=== PATIENT | female | born 1990 | race Caucasian/White ===

== ENCOUNTER 2018-12-15 20:08 | Emergency (ER) | payer BC ==
[2018-12-15] MEDS ORDERED: Ondansetron 4 MG/2 ML SDV IVPUSH ONE (20:37)
[2018-12-15] MEDS ORDERED: Sodium Chloride 0.9% 1,000 ML IV SCH (20:45)
--- NOTE | 2018-12-15 22:03 | EDM.PDOC ---
<Latrell Galo - Last Filed: 12/16/18 08:44> ED HPI GENERAL MEDICAL PROBLEM - General Chief Complaint: Abdominal Pain Stated Complaint: ABDOMINAL PAIN/FEVER/ACHES Time Seen by Provider: 12/15/18 20:17 - Related Data Allergies Allergy/AdvReac Type Severity Reaction Status Date / Time No Known Allergies Allergy Verified 12/15/18 20:22 Home Meds: Home Meds . [No Known Home Meds] 12/15/18 [History] Course - Vital Signs Last Recorded V/S: Last Vital Signs Temp 36.8 C 12/15/18 20:19 Pulse 97 12/15/18 20:19 Resp 16 12/15/18 20:19 BP 110/57 L 12/15/18 20:19 Pulse Ox 100 12/15/18 20:19 - Orders/Labs/Meds Labs: Laboratory Tests 12/15/18 12/15/18 12/15/18 Range/Units 20:50 20:50 20:50 WBC 7.39 (3.98-10.04) K/mm3 RBC 4.30 (3.98-5.22) M/mm3 Hgb 13.2 (11.2-15.7) gm/L Hct 37.8 (34.1-44.9) % MCV 87.9 (79.4-94.8) fl MCH 30.7 (25.6-32.2) pg MCHC 34.9 (32.2-35.5) g/dl RDW Std Deviation 38.8 (36.4-46.3) fL Plt Count 215 (182-369) K/mm3 MPV 10.8 (9.4-12.3) fl Neutrophils % (Manual) 68 H (40-60) % Band Neutrophils % 0 (0-10) % Lymphocytes % (Manual) 25 (20-40) % Atypical Lymphs % 0 % Monocytes % (Manual) 6 (2-10) % Eosinophils % (Manual) 0 L (0.7-5.8) % Basophils % (Manual) 1 (0.1-1.2) Platelet Estimate Adequate Plt Morphology Comment Normal RBC Morph Comment Normal Sodium 136 (136-145) mEq/L Potassium 3.2 L (3.5-5.1) mEq/L Chloride 103 (98-107) mEq/L Carbon Dioxide 25 (21-32) mEq/L Anion Gap 11.2 (5-15) BUN 7 (7-18) mg/dL Creatinine 0.9 (0.55-1.02) mg/dL Est Cr Clr Drug Dosing 81.80 mL/min Estimated GFR (MDRD) > 60 (>60) mL/min BUN/Creatinine Ratio 7.8 L (14-18) Glucose 111 H (74-106) mg/dL Calcium 8.9 (8.5-10.1) mg/dL Total Bilirubin 0.8 (0.2-1.0) mg/dL AST 24 (15-37) U/L ALT 36 (14-59) U/L Alkaline Phosphatase 96 (46-116) U/L C-Reactive Protein 11.3 H* (<1.0) mg/dL Total Protein 7.5 (6.4-8.2) g/dl Albumin 3.9 (3.4-5.0) g/dl Globulin 3.6 gm/dL Albumin/Globulin Ratio 1.1 (1-2) Urine Color (Yellow) Urine Appearance (Clear) Urine pH (5.0-8.0) Ur Specific Harvel (1.005-1.030) Urine Protein (Negative) Urine Glucose (UA) (Negative) Urine Ketones (Negative) Urine Occult Blood (Negative) Urine Nitrite (Negative) Urine Bilirubin (Negative) Urine Urobilinogen (0.2-1.0) Ur Leukocyte Esterase (Negative) Urine RBC (0-5) /hpf Urine WBC (0-5) /hpf Ur Epithelial Cells (0-5) /hpf Urine Bacteria (FEW) /hpf Urine Mucus (FEW) /hpf Urine HCG, Qual (NEGATIVE) 12/15/18 12/15/18 12/16/18 Range/Units 21:04 21:04 05:35 WBC 6.09 (3.98-10.04) K/mm3 RBC 4.18 (3.98-5.22) M/mm3 Hgb 12.8 (11.2-15.7) gm/L Hct 37.2 (34.1-44.9) % MCV 89.0 (79.4-94.8) fl MCH 30.6 (25.6-32.2) pg MCHC 34.4 (32.2-35.5) g/dl RDW Std Deviation 40.0 (36.4-46.3) fL Plt Count 208 (182-369) K/mm3 MPV 10.6 (9.4-12.3) fl Neutrophils % (Manual) 45 (40-60) % Band Neutrophils % 0 (0-10) % Lymphocytes % (Manual) 50 H (20-40) % Atypical Lymphs % 0 % Monocytes % (Manual) 1 L (2-10) % Eosinophils % (Manual) 3 (0.7-5.8) % Basophils % (Manual) 1 (0.1-1.2) Platelet Estimate Adequate Plt Morphology Comment Normal RBC Morph Comment Normal Sodium (136-145) mEq/L Potassium (3.5-5.1) mEq/L Chloride (98-107) mEq/L Carbon Dioxide (21-32) mEq/L Anion Gap (5-15) BUN (7-18) mg/dL Creatinine (0.55-1.02) mg/dL Est Cr Clr Drug Dosing mL/min Estimated GFR (MDRD) (>60) mL/min BUN/Creatinine Ratio (14-18) Glucose (74-106) mg/dL Calcium (8.5-10.1) mg/dL Total Bilirubin (0.2-1.0) mg/dL AST (15-37) U/L ALT (14-59) U/L Alkaline Phosphatase (46-116) U/L C-Reactive Protein (<1.0) mg/dL Total Protein (6.4-8.2) g/dl Albumin (3.4-5.0) g/dl Globulin gm/dL Albumin/Globulin Ratio (1-2) Urine Color Yellow (Yellow) Urine Appearance Clear (Clear) Urine pH 7.5 (5.0-8.0) Ur Specific Harvel 1.015 (1.005-1.030) Urine Protein Trace H (Negative) Urine Glucose (UA) Negative (Negative) Urine Ketones Negative (Negative) Urine Occult Blood Negative (Negative) Urine Nitrite Negative (Negative) Urine Bilirubin Negative (Negative) Urine Urobilinogen 1.0 (0.2-1.0) Ur Leukocyte Esterase Negative (Negative) Urine RBC 0-5 (0-5) /hpf Urine WBC 0-5 (0-5) /hpf Ur Epithelial Cells 0-5 (0-5) /hpf Urine Bacteria Not seen (FEW) /hpf Urine Mucus Not seen (FEW) /hpf Urine HCG, Qual Negative (NEGATIVE) 12/16/18 Range/Units 05:35 WBC (3.98-10.04) K/mm3 RBC (3.98-5.22) M/mm3 Hgb (11.2-15.7) gm/L Hct (34.1-44.9) % MCV (79.4-94.8) fl MCH (25.6-32.2) pg MCHC (32.2-35.5) g/dl RDW Std Deviation (36.4-46.3) fL Plt Count (182-369) K/mm3 MPV (9.4-12.3) fl Neutrophils % (Manual) (40-60) % Band Neutrophils % (0-10) % Lymphocytes % (Manual) (20-40) % Atypical Lymphs % % Monocytes % (Manual) (2-10) % Eosinophils % (Manual) (0.7-5.8) % Basophils % (Manual) (0.1-1.2) Platelet Estimate Plt Morphology Comment RBC Morph Comment Sodium (136-145) mEq/L Potassium (3.5-5.1) mEq/L Chloride (98-107) mEq/L Carbon Dioxide (21-32) mEq/L Anion Gap (5-15) BUN (7-18) mg/dL Creatinine (0.55-1.02) mg/dL Est Cr Clr Drug Dosing mL/min Estimated GFR (MDRD) (>60) mL/min BUN/Creatinine Ratio (14-18) Glucose (74-106) mg/dL Calcium (8.5-10.1) mg/dL Total Bilirubin (0.2-1.0) mg/dL AST (15-37) U/L ALT (14-59) U/L Alkaline Phosphatase (46-116) U/L C-Reactive Protein 8.8 H* (<1.0) mg/dL Total Protein (6.4-8.2) g/dl Albumin (3.4-5.0) g/dl Globulin gm/dL Albumin/Globulin Ratio (1-2) Urine Color (Yellow) Urine Appearance (Clear) Urine pH (5.0-8.0) Ur Specific Harvel (1.005-1.030) Urine Protein (Negative) Urine Glucose (UA) (Negative) Urine Ketones (Negative) Urine Occult Blood (Negative) Urine Nitrite (Negative) Urine Bilirubin (Negative) Urine Urobilinogen (0.2-1.0) Ur Leukocyte Esterase (Negative) Urine RBC (0-5) /hpf Urine WBC (0-5) /hpf Ur Epithelial Cells (0-5) /hpf Urine Bacteria (FEW) /hpf Urine Mucus (FEW) /hpf Urine HCG, Qual (NEGATIVE) Meds: Medications Discontinued Medications Generic Name Dose Route Start Last Admin Trade Name Freq PRN Reason Stop Dose Admin Hydromorphone HCl 0.5 mg 12/16/18 00:25 12/16/18 01:05 Dilaudid IVPUSH 12/16/18 00:26 0.5 mg ONETIME ONE Administration Sodium Chloride 1,000 mls @ 999 mls/hr 12/15/18 20:45 12/15/18 20:52 Normal Saline IV 999 mls/hr ASDIRECTED JORDI Administration Dextrose/Sodium Chloride 1,000 mls @ 125 mls/hr 12/16/18 00:30 Dextrose 5%-Normal Saline IV ASDIRECTED JORDI Potassium Chloride/Dextrose/Sod Cl 1,000 mls @ 125 mls/hr 12/16/18 00:30 01:04 D5 Ns With 40 Meq Kcl IV 125 mls/hr ASDIRECTED JORDI Administration Piperacillin Sod/Tazobactam 100 mls @ 25 mls/hr 12/16/18 00:30 12/16/18 08:58 Sod 4.5 gm/ Sodium Chloride IV Not Given Q8H JORDI Ketorolac Tromethamine 30 mg 12/15/18 22:36 12/15/18 22:43 Toradol IVPUSH 12/15/18 22:37 30 mg ONETIME ONE Administration Lactulose 20 gm 12/15/18 22:53 12/15/18 23:16 Cephulac PO 12/15/18 22:54 20 gm ONETIME ONE Administration Ondansetron HCl 4 mg 12/15/18 20:37 12/15/18 20:53 Zofran IVPUSH 12/15/18 20:38 4 mg ONETIME ONE Administration Ondansetron HCl 4 mg 12/16/18 00:24 12/16/18 01:04 Zofran IVPUSH 12/16/18 00:25 4 mg ONETIME ONE Administration - Re-Assessments/Exams Free Text/Narrative Re-Assessment/Exam: 12/16/18 08:32 Dr. Rodriguez is here to evaluate the patient. 12/16/18 08:44 Dr. Rodriguez is not convinced that the patient has appendicitis. He feels that she is more tender on the left side than the right. He offered to take the patient to the operating room, versus have the patient go home and return if her symptoms worsen. The patient chose the latter option. He recommends that we do not continue antibiotics, and he does not want her on pain medication. If the patient returns, it will be to take her to the operating room. He simply wants to be called - he doesn't want her to be re-worked up. Departure - Departure Time of Disposition: 08:46 Disposition: Home, Self-Care 01 Clinical Impression: Lower abdominal pain of unknown etiology, Mesenteric adenitis - Discharge Information Instructions: Abdominal Pain, Adult, [id number] Referrals: Olive Campbell MD [Primary Care Provider] - Forms: ED Department Discharge Additional Instructions: You were seen in the emergency room for lower abdominal pain. Workup in the ER included blood work and a CT scan of your abdomen and pelvis with oral and IV contrast. While the initial interpretation of your CT scan was that of constipation, a subsequent read was concerning for appendicitis. You were evaluated by the surgeon Dr. Rodriguez, who offered to take it to the operating room, however, you have preferred to return to the ER if your symptoms worsen. You may take [id number] Tylenol or ibuprofen as needed for discomfort. If your symptoms worsen, please return to the ER, with the anticipation that he will be taken to the operating room. <Lissett Lama - Last Filed: 12/17/18 10:53> ED HPI GENERAL MEDICAL PROBLEM - General Source of Information: Reports: Patient, RN Notes Reviewed History Limitations: Reports: No Limitations - History of Present Illness INITIAL COMMENTS - FREE TEXT/NARRATIVE: Patient is a 28 year old female who presents to the ED for the evaluation of abdominal pain/fever. She states that this pain started in the middle of her abdomen and then migrated to the right lower quadrant. She states that this started last night. She had some aches, flushing feelings, chills, slight headache and 4-5 episodes of diarrhea over the night, she states that there is pressure when she urinates and that it does not necessarily hurt to pee. She has been taking some ibuprofen for pain relief. She states she felt some mild nausea but no vomiting. She states that she is on her period at this point in time but she does not normally get cramps and when she does get cramps they go away with ibuprofen no problem. She states that she is and is monogamous to her . She believes him to be monogamous to her as well. She further denies any history of Crohn's or IBS. She has not had any abdominal surgeries so she still retains her appendix and gallbladder at this time. She further notes a history of ovarian cysts as well. She did go to the walk-in clinic, and they stated that they did not have a tech on to do an ultrasound or CT as it was given later in the day so they referred her to the ER instead for a workup. Abdominal Pain Score (Numeric/FACES): 6 Headache Pain Score (Numeric/FACES): 7 Past Medical History - Past Health History Medical/Surgical History: Denies Medical/Surgical History Social & Family History - Tobacco Use Smoking Status *Q: Never Smoker - Caffeine Use Caffeine Use: Reports: Coffee - Recreational Drug Use Recreational Drug Use: No ED ROS GENERAL - Review of Systems Review Of Systems: See Below Constitutional: Reports: Fever, Chills HEENT: Reports: No Symptoms Respiratory: Reports: No Symptoms Cardiovascular: Reports: No Symptoms Endocrine: Reports: No Symptoms GI/Abdominal: Reports: Abdominal Pain, Diarrhea, Nausea. Denies: Vomiting : Reports: Other (Pelvic pressure with urination) Musculoskeletal: Reports: No Symptoms Skin: Reports: No Symptoms Neurological: Reports: No Symptoms Psychiatric: Reports: No Symptoms Hematologic/Lymphatic: Reports: No Symptoms Immunologic: Reports: No Symptoms ED EXAM, GI/ABD - Physical Exam Exam: See Below Exam Limited By: No Limitations General Appearance: Alert, WD/WN, No Apparent Distress Eyes: Bilateral: Normal Appearance Ears: Normal External Exam Nose: Normal Inspection Throat/Mouth: Normal Inspection, Normal Lips, Normal Teeth, Normal Gums, Normal Oropharynx, Normal Voice, No Airway Compromise Head: Atraumatic, Normocephalic Neck: Normal Inspection, Supple, Non-Tender, Full Range of Motion Respiratory/Chest: No Respiratory Distress, Lungs Clear, Normal Breath Sounds, No Accessory Muscle Use, Chest Non-Tender Cardiovascular: Normal Peripheral Pulses, Regular Rate, Rhythm, No Murmur GI/Abdominal Exam: Normal Bowel Sounds, Soft, No Distention, No Mass, Tender ( generalized, but mostly tender over RLQ) Back Exam: Normal Inspection, Full Range of Motion Extremities: Normal Inspection, Normal Capillary Refill Neurological: Alert, Oriented, Normal Cognition, No Motor/Sensory Deficits Psychiatric: Normal Affect, Normal Mood Skin Exam: Warm, Dry, Intact, Normal Color, No Rash Course - Orders/Labs/Meds Labs: Laboratory Tests 12/15/18 12/15/18 12/15/18 Range/Units 20:50 20:50 20:50 WBC 7.39 (3.98-10.04) K/mm3 RBC 4.30 (3.98-5.22) M/mm3 Hgb 13.2 (11.2-15.7) gm/L Hct 37.8 (34.1-44.9) % MCV 87.9 (79.4-94.8) fl MCH 30.7 (25.6-32.2) pg MCHC 34.9 (32.2-35.5) g/dl RDW Std Deviation 38.8 (36.4-46.3) fL Plt Count 215 (182-369) K/mm3 MPV 10.8 (9.4-12.3) fl Neutrophils % (Manual) 68 H (40-60) % Band Neutrophils % 0 (0-10) % Lymphocytes % (Manual) 25 (20-40) % Atypical Lymphs % 0 % Monocytes % (Manual) 6 (2-10) % Eosinophils % (Manual) 0 L (0.7-5.8) % Basophils % (Manual) 1 (0.1-1.2) Platelet Estimate Adequate Plt Morphology Comment Normal RBC Morph Comment Normal Sodium 136 (136-145) mEq/L Potassium 3.2 L (3.5-5.1) mEq/L Chloride 103 (98-107) mEq/L Carbon Dioxide 25 (21-32) mEq/L Anion Gap 11.2 (5-15) BUN 7 (7-18) mg/dL Creatinine 0.9 (0.55-1.02) mg/dL Est Cr Clr Drug Dosing 81.80 mL/min Estimated GFR (MDRD) > 60 (>60) mL/min BUN/Creatinine Ratio 7.8 L (14-18) Glucose 111 H (74-106) mg/dL Calcium 8.9 (8.5-10.1) mg/dL Total Bilirubin 0.8 (0.2-1.0) mg/dL AST 24 (15-37) U/L ALT 36 (14-59) U/L Alkaline Phosphatase 96 (46-116) U/L C-Reactive Protein 11.3 H* (<1.0) mg/dL Total Protein 7.5 (6.4-8.2) g/dl Albumin 3.9 (3.4-5.0) g/dl Globulin 3.6 gm/dL Albumin/Globulin Ratio 1.1 (1-2) Urine Color (Yellow) Urine Appearance (Clear) Urine pH (5.0-8.0) Ur Specific Harvel (1.005-1.030) Urine Protein (Negative) Urine Glucose (UA) (Negative) Urine Ketones (Negative) Urine Occult Blood (Negative) Urine Nitrite (Negative) Urine Bilirubin (Negative) Urine Urobilinogen (0.2-1.0) Ur Leukocyte Esterase (Negative) Urine RBC (0-5) /hpf Urine WBC (0-5) /hpf Ur Epithelial Cells (0-5) /hpf Urine Bacteria (FEW) /hpf Urine Mucus (FEW) /hpf Urine HCG, Qual (NEGATIVE) 12/15/18 12/15/18 12/16/18 Range/Units 21:04 21:04 05:35 WBC 6.09 (3.98-10.04) K/mm3 RBC 4.18 (3.98-5.22) M/mm3 Hgb 12.8 (11.2-15.7) gm/L Hct 37.2 (34.1-44.9) % MCV 89.0 (79.4-94.8) fl MCH 30.6 (25.6-32.2) pg MCHC 34.4 (32.2-35.5) g/dl RDW Std Deviation 40.0 (36.4-46.3) fL Plt Count 208 (182-369) K/mm3 MPV 10.6 (9.4-12.3) fl Neutrophils % (Manual) 45 (40-60) % Band Neutrophils % 0 (0-10) % Lymphocytes % (Manual) 50 H (20-40) % Atypical Lymphs % 0 % Monocytes % (Manual) 1 L (2-10) % Eosinophils % (Manual) 3 (0.7-5.8) % Basophils % (Manual) 1 (0.1-1.2) Platelet Estimate Adequate Plt Morphology Comment Normal RBC Morph Comment Normal Sodium (136-145) mEq/L Potassium (3.5-5.1) mEq/L Chloride (98-107) mEq/L Carbon Dioxide (21-32) mEq/L Anion Gap (5-15) BUN (7-18) mg/dL Creatinine (0.55-1.02) mg/dL Est Cr Clr Drug Dosing mL/min Estimated GFR (MDRD) (>60) mL/min BUN/Creatinine Ratio (14-18) Glucose (74-106) mg/dL Calcium (8.5-10.1) mg/dL Total Bilirubin (0.2-1.0) mg/dL AST (15-37) U/L ALT (14-59) U/L Alkaline Phosphatase (46-116) U/L C-Reactive Protein (<1.0) mg/dL Total Protein (6.4-8.2) g/dl Albumin (3.4-5.0) g/dl Globulin gm/dL Albumin/Globulin Ratio (1-2) Urine Color Yellow (Yellow) Urine Appearance Clear (Clear) Urine pH 7.5 (5.0-8.0) Ur Specific Harvel 1.015 (1.005-1.030) Urine Protein Trace H (Negative) Urine Glucose (UA) Negative (Negative) Urine Ketones Negative (Negative) Urine Occult Blood Negative (Negative) Urine Nitrite Negative (Negative) Urine Bilirubin Negative (Negative) Urine Urobilinogen 1.0 (0.2-1.0) Ur Leukocyte Esterase Negative (Negative) Urine RBC 0-5 (0-5) /hpf Urine WBC 0-5 (0-5) /hpf Ur Epithelial Cells 0-5 (0-5) /hpf Urine Bacteria Not seen (FEW) /hpf Urine Mucus Not seen (FEW) /hpf Urine HCG, Qual Negative (NEGATIVE) 12/16/18 Range/Units 05:35 WBC (3.98-10.04) K/mm3 RBC (3.98-5.22) M/mm3 Hgb (11.2-15.7) gm/L Hct (34.1-44.9) % MCV (79.4-94.8) fl MCH (25.6-32.2) pg MCHC (32.2-35.5) g/dl RDW Std Deviation (36.4-46.3) fL Plt Count (182-369) K/mm3 MPV (9.4-12.3) fl Neutrophils % (Manual) (40-60) % Band Neutrophils % (0-10) % Lymphocytes % (Manual) (20-40) % Atypical Lymphs % % Monocytes % (Manual) (2-10) % Eosinophils % (Manual) (0.7-5.8) % Basophils % (Manual) (0.1-1.2) Platelet Estimate Plt Morphology Comment RBC Morph Comment Sodium (136-145) mEq/L Potassium (3.5-5.1) mEq/L Chloride (98-107) mEq/L Carbon Dioxide (21-32) mEq/L Anion Gap (5-15) BUN (7-18) mg/dL Creatinine (0.55-1.02) mg/dL Est Cr Clr Drug Dosing mL/min Estimated GFR (MDRD) (>60) mL/min BUN/Creatinine Ratio (14-18) Glucose (74-106) mg/dL Calcium (8.5-10.1) mg/dL Total Bilirubin (0.2-1.0) mg/dL AST (15-37) U/L ALT (14-59) U/L Alkaline Phosphatase (46-116) U/L C-Reactive Protein 8.8 H* (<1.0) mg/dL Total Protein (6.4-8.2) g/dl Albumin (3.4-5.0) g/dl Globulin gm/dL Albumin/Globulin Ratio (1-2) Urine Color (Yellow) Urine Appearance (Clear) Urine pH (5.0-8.0) Ur Specific Harvel (1.005-1.030) Urine Protein (Negative) Urine Glucose (UA) (Negative) Urine Ketones (Negative) Urine Occult Blood (Negative) Urine Nitrite (Negative) Urine Bilirubin (Negative) Urine Urobilinogen (0.2-1.0) Ur Leukocyte Esterase (Negative) Urine RBC (0-5) /hpf Urine WBC (0-5) /hpf Ur Epithelial Cells (0-5) /hpf Urine Bacteria (FEW) /hpf Urine Mucus (FEW) /hpf Urine HCG, Qual (NEGATIVE) Meds: Medications Discontinued Medications Generic Name Dose Route Start Last Admin Trade Name Freq PRN Reason Stop Dose Admin Hydromorphone HCl 0.5 mg 12/16/18 00:25 12/16/18 01:05 Dilaudid IVPUSH 12/16/18 00:26 0.5 mg ONETIME ONE Administration Sodium Chloride 1,000 mls @ 999 mls/hr 12/15/18 20:45 12/15/18 20:52 Normal Saline IV 999 mls/hr ASDIRECTED JRODI Administration Dextrose/Sodium Chloride 1,000 mls @ 125 mls/hr 12/16/18 00:30 Dextrose 5%-Normal Saline IV ASDIRECTED JORDI Potassium Chloride/Dextrose/Sod Cl 1,000 mls @ 125 mls/hr 12/16/18 00:30 01:04 D5 Ns With 40 Meq Kcl IV 125 mls/hr ASDIRECTED JORDI Administration Piperacillin Sod/Tazobactam 100 mls @ 25 mls/hr 12/16/18 00:30 12/16/18 08:58 Sod 4.5 gm/ Sodium Chloride IV Not Given Q8H JORDI Ketorolac Tromethamine 30 mg 12/15/18 22:36 12/15/18 22:43 Toradol IVPUSH 12/15/18 22:37 30 mg ONETIME ONE Administration Lactulose 20 gm 12/15/18 22:53 12/15/18 23:16 Cephulac PO 12/15/18 22:54 20 gm ONETIME ONE Administration Ondansetron HCl 4 mg 12/15/18 20:37 12/15/18 20:53 Zofran IVPUSH 12/15/18 20:38 4 mg ONETIME ONE Administration Ondansetron HCl 4 mg 12/16/18 00:24 12/16/18 01:04 Zofran IVPUSH 12/16/18 00:25 4 mg ONETIME ONE Administration - Re-Assessments/Exams Free Text/Narrative Re-Assessment/Exam: 12/15/18 20:50 Patient presents to the ED for abdominal pain and fever. I have ordered CBC, CMP, UA with a qualitative hCG, abdominal CT, 4 mg IV Zofran ,and some IV fluids in management and evaluation of this. 12/15/18 22:10 Labs have returned and are essentially within normal limits her UA is clear as well. 12/15/18 22:[address] is done and reviewed with Dr. Chavez at this time, he cannot find any indication that she would've had a ruptured ovarian cyst or having appendicitis at this time. He notes that there is an increased amount of solid stool and says that she is constipated. The diarrhea that she had likely passed over the hard stool. The oral contrast should help clean her out and he did recommend a one-time dose of lactulose to see if this would provide further results. I will discharge the patient home with general recommendations. 12/15/18 23:30 [facility] called shortly after the patient was discharged with a critical value, they stated that she had mild appendicitis. The formal read on the CT is changes consistent with appendicitis but no evidence for appendiceal rupture, the appendix is dilated, measuring 9.9 mm. There is contrast in the terminal ileum and cecum, no oral contrast enters the lumen of the appendix however, thickening and enhancement of the wall of the appendix, mild periappendiceal inflammation. It was at this time that the patient was called back and asked to return to ED so that she can have surgery to remove her appendix. The patient will come back at this time. She states the last time she ate or drink anything besides the oral contrast was around 7 PM tonight and she only ate some crackers. 12/15/18 23:39 Dr. Lundberg was consulted on the case and she did look at the CT, but feels that the patient has very early appendicitis and does not warrant the need to go to surgery at this moment, she suggests that the patient be given IV antibiotics and watched overnight to see if she doesn't improve by the AM. Care of the patient is being transferred to Dr. Chavez. Departure - Departure Time of Disposition: 22:59 Condition: Fair - Discharge Information *PRESCRIPTION DRUG MONITORING PROGRAM REVIEWED*: No *COPY OF PRESCRIPTION DRUG MONITORING REPORT IN PATIENT JAYANT: No <Arnel Chavez - Last Filed: 12/20/18 07:19> ED HPI GENERAL MEDICAL PROBLEM - History of Present Illness Onset: Gradual Onset Date: 12/14/18 Onset Time: 19:30 Duration: Hour(s):, Constant, Getting Worse Location: Reports: Abdomen (Pain started periumbilically and now is felt mostly in the right lower quadrant of the abdomen just above the anterior iliac crest . ) Quality: Reports: Ache Severity: Moderate (5-6 out of 10. Occasional colicky component to the pain.) Improves with: Reports: None Worsens with: Reports: Movement (Walking or coughing make the pain much worse. She recognizes she is walking more slowly than normal. She appreciated every bump in the road while driving caused increased pain compatible with peritonitis.) Context: Denies: Activity, Exercise, Lifting, Sick Contact, Trauma, Other Associated Symptoms: Reports: Fever/Chills (Appreciated some fever and chills.) , Loss of Appetite, Nausea/Vomiting, Other (Appreciates pain seems to get worse with voiding.). 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 On my examination bowel sounds are quite active in all 4 quadrants. However she does have pain well localized to the right lower quadrant with positive Rovsing sign and rebound tenderness. There is mild guarding in the right lower quadrant. Clinically she does have early appendicitis. Plan will be to give her IV Zosyn 4.5gm with IV fluids to include D5 normal saline with 40 mg of KCl per liter at 125 mils per hour. Her potassium is low at 3.2. I will give her Dilaudid 0.5 mg IV and Zofran 4 mg IV for pain relief at this time. Plan will be to monitor in the ED overnight and check her labs at 0600 hrs. I will review her abdominal pain at that time as well. Suspect she will require an appendectomy. Labs done earlier now it also have a CRP available. It is elevated at 11 12/16/18 01:36 patient is sleeping at this time and appears to be quite comfortable. 12/16/18 03:05 A she'll have repeat labs at 0600 hrs. to include a CBC and CRP. I will reexamine her abdomen at that time as well. 12/16/18 06:05: Patient reports the pain is mild at this time and made worse only by movement.. Examination reveals quiescent bowel sounds. She remains guarding and has point tenderness over McBurney's point in the right lower quadrant with rebound tenderness compatible with acute appendicitis. He is no worse than she was 6 hours ago. Labs were drawn approximately 20 minutes ago. 12/16/18 06:55 Repeat white blood cell count is 6.09 with a change in the differential to 45% neutrophils and 50% lymphocytes suggesting underlying viral infection. Open his now 12.8. Probably diluted somewhat overnight by IV fluids.. MCV is 89.0. Platelet count 208,000. CRP remains elevated at 8.8. Plan will be to discuss the case with hadoop consultant surgeon. At this point time surgeons are in transition. We'll comes Dr. Rebecca Lundberg is finishing her stay here and Dr Rodriguez is taking over surgical call at 0900hrs. 12/16/18 07:40: I spoke to the patient before going off shift. She had to void and I unplugged her from her IV. She jumped up off the gurney and walked very normally to the bathroom. not actingf like an appendicitis. ! I therefore discussed the CT exam with outr radiologist Dr Christianson and he agrees with apendix being upper limits of normal in size at 9.9mm. He does not identify any signifcant yannick appendyceal infiltrate either. He appreciates significant lymphadenopathy in the RLQ and with her cahnge in the WBC differential this am the diagnosis is more likely to represent mesenteric adenitis. Will ask Dr Rodriguez to see her in consultation when he comes on shift at 0900hrs.
[2018-12-15] MEDS ORDERED: Ketorolac 30 MG/ML SDV IVPUSH ONE (22:36)
[2018-12-15] MEDS ORDERED: Lactulose Soln 10 GM/15 ML 30 ML UD Cup PO ONE (22:53)
[2018-12-16] MEDS ORDERED: Ondansetron 4 MG/2 ML SDV IVPUSH ONE (00:24)
[2018-12-16] MEDS ORDERED: HYDROmorphone 0.5 MG/0.5 ML Syringe IVPUSH ONE (00:25)
[2018-12-16] MEDS ORDERED: Dextrose 5%-0.9% NaCl 1,000 ML IV SCH (00:30)
[2018-12-16] MEDS ORDERED: D5%-0.9% NaCl w/ KCl 40 meq 1,000 ML IV SCH (00:30)
[2018-12-16] MEDS: Piperacillin/Tazobactam 4.5 GM in Sodium Chloride 0.9% 100 ML IV SCH ×2 (01:07→08:58)
--- NOTE | 2018-12-16 09:10 | CT ---
CT abdomen and pelvis Technique: Multiple axial sections were obtained from above the dome of the diaphragm inferiorly through the pubic symphysis. Intravenous and oral contrast was utilized. Delayed images were obtained through the bladder. Appendix is slightly prominent in size. This measures about 9 mm. There is no significant inflammatory change around the appendix. Multiple lymph nodes are seen within the mesentery most prominent on the right side presumably reactive in etiology. Visualized lung bases show nothing acute. Liver contains no focal parenchymal abnormality. Spleen appears within normal limits. Adrenal glands show no nodule. Pancreas is within normal limits. Gallbladder contains no calcified gallstones. Adrenal glands show no nodule. Kidneys show symmetric contrast enhancement without hydronephrosis or mass. Delayed images show contrast within the distal ureters on delayed images as well as contrast within the bladder. No pelvic mass or adenopathy is seen. No free fluid is seen. Bone window settings were reviewed which appear within normal limits for the patient's age. Impression: 1. Appendix is slightly prominent in size. There is no inflammatory change around the appendix and this is most likely due to normal variant. Prominent mesenteric lymph nodes are seen and findings are most likely due to mesenteric adenitis as a cause for the patient's symptoms. Please correlate with physical exam and laboratory values. 2. Other normal findings as noted above. I disagree with preliminary report from [facility], finalized on 12/16/18, 12:24 AM Central Time, code #3
== END 2018-12-16 08:59 | disposition home or self-care (01) ==
LOC: JD.ED 20:08
DX: R10.30 Lower abdominal pain, unspecified (principal)
CPT/HCPCS: 36415; 74177; 80053; 81001; 81025; 85007; 85027; 86140; 96361; 96365; 96366; 96375; 96376; 99284; A9270; J1170; J1885; J2405; J2543; J3480; J7030; J7040

== ENCOUNTER 2020-11-16 02:44 | Inpatient (IN) | payer BC ==
[~2020-11-16 02:44] MED LIST: Bupivacaine 0.25% 10 ML SDV ONE
[2020-11-16] MEDS ORDERED: Lactated Ringers 1,000 ML ONE (03:14)
[2020-11-16] MEDS ORDERED: Ampicillin 2 GM AdvVial IV ONE (03:14)
[2020-11-16] MEDS: Lactated Ringers 1,000 ML IV SCH ×2 (03:40→08:25)
[2020-11-16] MEDS ORDERED: Ampicillin 2 GM in Sodium Chloride 0.9% 100 ML IV ONE (04:04)
[2020-11-16] MEDS ORDERED: Ondansetron 4 MG/2 ML SDV IVPUSH PRN (04:04)
[2020-11-16] MEDS ORDERED: Nalbuphine 10 MG/1 ML Vial IVPUSH PRN (04:04)
[2020-11-16] MEDS ORDERED: Acetaminophen 325 MG Tab PO PRN (04:04)
[2020-11-16] MEDS ORDERED: Calcium Carbonate 500 MG Tab.Chew PO PRN (04:04)
[2020-11-16] MEDS ORDERED: Sodium Chloride 0.9% 10 ML Syringe FLUSH PRN (04:04)
[2020-11-16] MEDS ORDERED: Oxytocin/Lactated Ringers 10 UNIT/1,000 ML BAG IV SCH ×2 (04:15→08:15)
[2020-11-16] MEDS ORDERED: Bupivacaine/fentaNYL/NS 100 ML Bag EPIDUR PRN (04:42)
[2020-11-16] MEDS ORDERED: diphenhydrAMINE 50 MG/ML SDV IVPUSH PRN (04:42)
[2020-11-16] MEDS ORDERED: fentaNYL 100 MCG/2 ML SDV EPIDUR PRN (04:42)
[2020-11-16] MEDS ORDERED: ePHEDrine 50 MG/ML SDV IVPUSH PRN (04:42)
--- NOTE | 2020-11-16 05:11 | PCM.PREANE ---
Preanesthetic Assessment - Procedure Proposed Procedure: [facility] - Anesthesia/Transfusion/Family Hx Anesthesia History: Prior Anesthesia Without Reaction Family History of Anesthesia Reaction: No Transfusion History: No Prior Transfusion(s) - Review of Systems General: Chills (now) Pulmonary: No Symptoms Cardiovascular: No Symptoms Gastrointestinal: Abdominal Pain (contractions) Neurological: No Symptoms Other: Reports: None - Physical Assessment Vital Signs: 133/67 20 84 100% Height: 5 ft 4 in Weight: 62.324 kg ASA Class: 2 Mental Status: Alert & Oriented x3 Airway Class: Mallampati = 1 Dentition: Reports: Normal Dentition Thyro-Mental Finger Breadths: 3 Mouth Opening Finger Breadths: 3 ROM/Head Extension: Full Lungs: Clear to Auscultation, Normal Respiratory Effort Cardiovascular: Regular Rate, Regular Rhythm - Lab Values: Laboratory Last Values WBC 14.81 K/mm3 (3.98-10.04) H 11/16/20 04:10 RBC 4.04 M/mm3 (3.98-5.22) 11/16/20 04:10 Hgb 12.4 gm/dl (11.2-15.7) 11/16/20 04:10 Hct 37.1 % (34.1-44.9) 11/16/20 04:10 MCV 91.8 fl (79.4-94.8) 11/16/20 04:10 MCH 30.7 pg (25.6-32.2) 11/16/20 04:10 MCHC 33.4 g/dl (32.2-35.5) 11/16/20 04:10 RDW Std Deviation 44.8 fL (36.4-46.3) 11/16/20 04:10 Plt Count 194 K/mm3 (182-369) 11/16/20 04:10 MPV 11.4 fl (9.4-12.3) 11/16/20 04:10 Neut % (Auto) 81.8 % (34.0-71.1) H 11/16/20 04:10 Lymph % (Auto) 10.8 % (19.3-51.7) L 11/16/20 04:10 Sandoval % (Auto) 6.6 % (4.7-12.5) 11/16/20 04:10 Eos % (Auto) 0.3 (0.7-5.8) L 11/16/20 04:10 Baso % (Auto) 0.1 % (0.1-1.2) 11/16/20 04:10 Neut # (Auto) 12.12 K/mm3 (1.56-6.13) H 11/16/20 04:10 Lymph # (Auto) 1.60 K/mm3 (1.18-3.74) 11/16/20 04:10 [place] # (Auto) 0.98 K/mm3 (0.24-0.36) H 11/16/20 04:10 Eos # (Auto) 0.04 K/mm3 (0.04-0.36) 11/16/20 04:10 Baso # (Auto) 0.01 K/mm3 (0.01-0.08) 11/16/20 04:10 - Allergies Allergies/Adverse Reactions: Allergies Allergy/AdvReac Type Severity Reaction Status Date / Time No Known Allergies Allergy Verified 11/16/20 04:04 - Blood Blood Available: No - Acknowledgements Anesthesia Type Planned: Epidural Pt an Appropriate Candidate for the Planned Anesthesia: Yes Alternatives and Risks of Anesthesia Discussed w Pt/Guardian: Yes Pt/Guardian Understands and Agrees with Anesthesia Plan: Yes PreAnesthesia Questionnaire - Past Health History Medical/Surgical History: Denies Medical/Surgical History HEENT History: Reports: Other (See Below) (glasses) Cardiovascular History: Reports: None Respiratory History: Reports: None Gastrointestinal History: Reports: GERD : 1 (39 weeks) Para: 0 Psychiatric History: Reports: None Oncologic (Cancer) History: Reports: None - Past Surgical History Head Surgeries/Procedures: Reports: None HEENT Surgical History: Reports: Oral Surgery - SUBSTANCE USE Tobacco Use Status *Q: Never Tobacco User Tobacco Use Within Last Twelve Months: No Second Hand Smoke Exposure: No Days Per Week of Alcohol Use: 0 Recreational Drug Use History: No - HOME MEDS Home Medications: Home Meds . [No Known Home Meds] 12/15/18 [History] - CURRENT (IN HOUSE) MEDS Current Meds: Current Medications Acetaminophen (Tylenol) 650 mg PO Q4H PRN PRN Reason: Pain (Mild 1-3) and fever Calcium Carbonate/Glycine (Tums) 1,000 mg PO Q2H PRN PRN Reason: Indigestion Diphenhydramine HCl (Benadryl) 25 mg IVPUSH Q6H PRN PRN Reason: pruritis Ephedrine Sulfate (Ephedrine Sulfate) 5 mg IVPUSH ASDIRECTED PRN PRN Reason: Hypotension Fentanyl (Sublimaze) 100 mcg EPIDUR Q3H PRN PRN Reason: Pain Last Admin: 11/16/20 04:48 Dose: 100 mcg Documented by: Fentanyl/Bupivacaine HCl (Fentanyl/Bupivacaine/Ns 2 Mcg-0.125% 100 Ml) 100 ml EPIDUR ASDIRECTED PRN PRN Reason: Pain Last Admin: 11/16/20 04:48 Dose: 100 ml Documented by: Ampicillin Sodium 1 gm/ Sodium (Chloride) 100 mls @ 200 mls/hr IV Q4H JORDI Oxytocin/Lactated Ringer's (Pitocin In Lr 10 Units/1,000 Ml) 10 unit in 1,000 mls @ 500 mls/hr IV .CONTINUOUS JORDI Lactated Ringer's (Ringers, Lactated) 1,000 mls @ 100 mls/hr IV ASDIRECTED JORDI Last Admin: 11/16/20 03:40 Dose: 100 mls/hr Documented by: Nalbuphine HCl (Nubain) 10 mg IVPUSH Q2H PRN PRN Reason: Pain Ondansetron HCl (Zofran) 4 mg IVPUSH Q4H PRN PRN Reason: Nausea/Vomiting Sodium Chloride (Saline Flush) 10 ml FLUSH ASDIRECTED PRN PRN Reason: Keep Vein Open Discontinued Medications Ampicillin Sodium 2 gm/ Sodium (Chloride) 100 mls @ 200 mls/hr IV ONETIME ONE Stop: 11/16/20 04:33 Last Admin: 11/16/20 03:40 Dose: 200 mls/hr Documented by:
--- NOTE | 2020-11-16 06:46 | PCM.LDHP ---
L&D History of Present Illness - General Date of Service: 11/16/20 Admit Problem/Dx: Patient Status Order with Admit Dx/Problem 11/16/20 04:05 Patient Status [ADT] Routine Admission Diagnosis/Problem Admission Diagnosis/Problem Source of Information: Patient History Limitations: Reports: No Limitations - History of Present Illness Introduction:: Patient is a 30 y/o at 39 5/7 wks who presented this AM in labor. On initial RN exam was 4-5 cm dilated. Since that time has received her epidural. Comfortable currently. 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 Para: 0 LMP (Approximate): - Past Surgical History HEENT Surgical History: Reports: Oral Surgery Social & Family History - Family History Family Medical History: No Pertinent Family History - Tobacco Use Tobacco Use Status *Q: Never Tobacco User Second Hand Smoke Exposure: No - Caffeine Use Caffeine Use: Reports: Coffee - Alcohol Use Alcohol Use History: No Days Per Week of Alcohol Use: 0 - Recreational Drug Use Recreational Drug Use: No - Living Situation & Occupation Living situation: Reports: Occupation: Employed H&P Review of Systems - Review of Systems: Review Of Systems: See Below General: Reports: No Symptoms Pulmonary: Reports: No Symptoms Cardiovascular: Reports: No Symptoms Gastrointestinal: Reports: No Symptoms Genitourinary: Reports: No Symptoms Musculoskeletal: Reports: No Symptoms Psychiatric: Reports: No Symptoms Neurological: Reports: No Symptoms Hematologic/Lymphatic: Reports: No Symptoms L&D Exam - Exam Exam: See Below - Vital Signs Vital Signs: Last Vital Signs Temp 35.9 C L 11/16/20 02:58 Pulse 85 11/16/20 02:58 Resp 16 11/16/20 02:58 BP 126/76 11/16/20 02:58 Pulse Ox 95 11/16/20 02:58 Weight: 78.653 kg - OB Specific Contraction Intensity: Strong Movement: Active Heart Tones: Present Heart Tones per Min: 130 Heart Rate (FHR) Variability: Moderate (6-25 bmp) Presentation: Vertex - Ralph Score Ralph Score Cervix Position: Anterior Ralph Score Consistency: Soft Ralph Score Effacement: >80% Ralph Score Dilation: > 5 cm Ralph Score Infant's Station: -1 ,0 Ralph Score Total: 12 - Exam General: Alert, Oriented, Cooperative Lungs: Clear to Auscultation, Normal Respiratory Effort Cardiovascular: Regular Rate, Regular Rhythm GI/Abdominal Exam: Soft, Non-Tender Genitourinary: Normal external exam Extremities: Normal Inspection Skin: Warm, Dry, Intact - Patient Data Lab Results Last 24 hrs: Laboratory Results - last 24 hr 11/16/20 11/16/20 Range/Units 04:10 04:10 WBC 14.81 H (3.98-10.04) K/mm3 RBC 4.04 (3.98-5.22) M/mm3 Hgb 12.4 (11.2-15.7) gm/dl Hct 37.1 (34.1-44.9) % MCV 91.8 (79.4-94.8) fl MCH 30.7 (25.6-32.2) pg MCHC 33.4 (32.2-35.5) g/dl RDW Std Deviation 44.8 (36.4-46.3) fL Plt Count 194 (182-369) K/mm3 MPV 11.4 (9.4-12.3) fl Neut % (Auto) 81.8 H (34.0-71.1) % Lymph % (Auto) 10.8 L (19.3-51.7) % Ector % (Auto) 6.6 (4.7-12.5) % Eos % (Auto) 0.3 L (0.7-5.8) Baso % (Auto) 0.1 (0.1-1.2) % Neut # (Auto) 12.12 H (1.56-6.13) K/mm3 Lymph # (Auto) 1.60 (1.18-3.74) K/mm3 [place] # (Auto) 0.98 H (0.24-0.36) K/mm3 Eos # (Auto) 0.04 (0.04-0.36) K/mm3 Baso # (Auto) 0.01 (0.01-0.08) K/mm3 Blood Type A POSITIVE Gel Antibody Screen Negative Result Diagrams: 11/16/20 04:10 - Problem List (1) 39 weeks gestation of SNOMED Code(s): 14768854 ICD Code: Z3A.39 - 39 WEEKS GESTATION OF Status: Acute Current Visit: Yes (2) Normal labor SNOMED Code(s): 30097442 ICD Code: O80 - ENCOUNTER FOR FULL-TERM UNCOMPLICATED DELIVERY; Z37.9 - OUTCOME OF DELIVERY, UNSPECIFIED Status: Acute Current Visit: Yes (3) GBS (group B Streptococcus carrier), +RV culture, currently SNOMED Code(s): 3120833098439, 986603552, 1798995754342 ICD Code: O99.820 - STREPTOCOCCUS B CARRIER STATE COMPLICATING Status: Acute Current Visit: Yes Problem List Initiated/Reviewed/Updated: Yes Orders Last 24hrs: Active Orders 24 hr Category Date Time Status Patient Status [ADT] Routine ADT 11/16/20 04:05 Active Activity as Tolerated [RC] PFP Care 11/16/20 04:05 Active Communication Order [RC] ASDIRECTED Care 11/16/20 04:05 Active Heart Tones [RC] ASDIRECTED Care 11/16/20 04:05 Active Non Stress Test [RC] PER UNIT ROUTINE Care 11/16/20 04:05 Active Notify Provider [RC] ASDIRECTED Care 11/16/20 04:42 Active Notify Provider [RC] PFP Care 11/16/20 04:05 Active Notify Provider [RC] PRN Care 11/16/20 04:05 Active Peripheral IV Care [RC] . DIRECTED Care 11/16/20 04:05 Active Vital Signs [RC] PER UNIT ROUTINE Care 11/16/20 04:05 Active Regular Diet [DIET] Diet 11/16/20 Breakfast Active PATIENT RETYPE [BBK] Routine Lab 11/16/20 05:45 Ordered RAPID PLASMA REAGIN,RPR [CHEM] Routine Lab 11/16/20 04:10 Received Acetaminophen [TylenoL] Med 11/16/20 04:04 Active 650 mg PO Q4H PRN Ampicillin 1 gm Med 11/16/20 08:15 Active Sodium Chloride 0.9% [Normal Saline] 100 ml IV Q4H Bupivacaine/fentaNYL/NS [fentaNYL/Bupivacaine/NS 2 MCG- Med 11/16/20 04:42 Active 0.125% 100 ML] 100 ml EPIDUR ASDIRECTED PRN Calcium Carbonate [Tums] Med 11/16/20 04:04 Active 1,000 mg PO Q2H PRN Lactated Ringers [Ringers, Lactated] 1,000 ml Med 11/16/20 04:15 Active IV ASDIRECTED Nalbuphine [Nubain] Med 11/16/20 04:04 Active 10 mg IVPUSH Q2H PRN Ondansetron [Zofran] Med 11/16/20 04:04 Active 4 mg IVPUSH Q4H PRN Oxytocin/Lactated Ringers [Pitocin in LR 10 Units/1,000 Med 11/16/20 04:15 Active ML] 10 unit in 1,000 ml IV .CONTINUOUS Sodium Chloride 0.9% [Saline Flush] Med 11/16/20 04:04 Active 10 ml FLUSH ASDIRECTED PRN diphenhydrAMINE [Benadryl] Med 11/16/20 04:42 Active 25 mg IVPUSH Q6H PRN ePHEDrine [ePHEDrine sulfate] Med 11/16/20 04:42 Active 5 mg IVPUSH ASDIRECTED PRN fentaNYL [Sublimaze] Med 11/16/20 04:42 Active 100 mcg EPIDUR Q3H PRN Electronic Heart Tones Ext w TOCO [WOMSER] Oth 11/16/20 04:05 Ordered Routine Electronic Heart Tones Internal [WOMSER] Per Unit Oth 11/16/20 04:05 Ordered Routine Peripheral IV Insertion Adult [OM.PC] Routine Oth 11/16/20 04:05 Ordered Resuscitation Status Routine Resus Stat 11/16/20 04:04 Ordered Medication Orders Acetaminophen (Tylenol) 650 mg PO Q4H PRN PRN Reason: Pain (Mild 1-3) and fever Calcium Carbonate/Glycine (Tums) 1,000 mg PO Q2H PRN PRN Reason: Indigestion Diphenhydramine HCl (Benadryl) 25 mg IVPUSH Q6H PRN PRN Reason: pruritis Ephedrine Sulfate (Ephedrine Sulfate) 5 mg IVPUSH ASDIRECTED PRN PRN Reason: Hypotension Fentanyl (Sublimaze) 100 mcg EPIDUR Q3H PRN PRN Reason: Pain Last Admin: 11/16/20 04:48 Dose: 100 mcg Documented by: JAY Fentanyl/Bupivacaine HCl (Fentanyl/Bupivacaine/Ns 2 Mcg-0.125% 100 Ml) 100 ml EPIDUR ASDIRECTED PRN PRN Reason: Pain Last Admin: 11/16/20 04:48 Dose: 100 ml Documented by: JAY Ampicillin Sodium 1 gm/ Sodium (Chloride) 100 mls @ 200 mls/hr IV Q4H JORDI Oxytocin/Lactated Ringer's (Pitocin In Lr 10 Units/1,000 Ml) 10 unit in 1,000 mls @ 500 mls/hr IV .CONTINUOUS JORDI Lactated Ringer's (Ringers, Lactated) 1,000 mls @ 100 mls/hr IV ASDIRECTED JORDI Last Admin: 11/16/20 03:40 Dose: 100 mls/hr Documented by: JAY Nalbuphine HCl (Nubain) 10 mg IVPUSH Q2H PRN PRN Reason: Pain Ondansetron HCl (Zofran) 4 mg IVPUSH Q4H PRN PRN Reason: Nausea/Vomiting Sodium Chloride (Saline Flush) 10 ml FLUSH ASDIRECTED PRN PRN Reason: Keep Vein Open Assessment/Plan Comment:: * Labs done and normal * GBS positive, receiving Ampicillin * Comfortable with Epidural * AROM performed, continue management otherwise * Anticipate
[2020-11-16] MEDS ORDERED: Ampicillin 1 GM in Sodium Chloride 0.9% 100 ML IV SCH (08:15)
--- NOTE | 2020-11-16 11:06 | PCM.DEL ---
L & D Note - General Info Date of Service: 11/16/20 - Delivery Note Labor: Spontaneous Delivery Outcome: Livebirth Delivery Method: Spontaneous Vaginal Delivery-Single Delivery Mode: Spontaneous Presentation: Left Occiput Anterior (WALLACE) Nuchal Cord: None Anesthesia Type: Epidural Amniotic Fluid Description: Clear Episiotomy Type: None Laceration: 2nd Degree, Perineal Suture type: Vicryl Suture size: 2-0 Placenta: Intact, Spontaneous Cord: 3 Vessels Estimated Blood Loss: 100 Resuscitation Needed: Yes : Bulb Syringe, Stimulated, Warmed, [place] Used, Warmer Used Delivery Comments (Free Text/Narrative):: Patient found to be complete and began pushing. With maternal pushing effort head delivered from WALLACE presentation. No nuchal cord present. With gentle downward traction the shoulders and body delivered. Infant placed on maternal abdomen. Cord clamped and cut. Cord blood obtained. Placenta allowed time to separate and expelled intact. Inspection of perineum showed a 2nd degree laceration repaired with a 2-0 vicryl in the typical fashion - General Info Date of Service: 11/16/20 - Patient Data Vitals - Most Recent: Last Vital Signs Temp 35.9 C L 11/16/20 02:58 Pulse 85 11/16/20 02:58 Resp 16 11/16/20 02:58 BP 126/76 11/16/20 02:58 Pulse Ox 95 11/16/20 02:58 Weight - Most Recent: 78.653 kg - Problem List & Annotations (1) 39 weeks gestation of SNOMED Code(s): 05855342 Code(s): Z3A.39 - 39 WEEKS GESTATION OF Status: Acute Current Visit: Yes (2) Normal labor SNOMED Code(s): 08865993 Code(s): O80 - ENCOUNTER FOR FULL-TERM UNCOMPLICATED DELIVERY; Z37.9 - OUTCOME OF DELIVERY, UNSPECIFIED Status: Acute Current Visit: Yes (3) GBS (group B Streptococcus carrier), +RV culture, currently SNOMED Code(s): 4429774124135, 888967383, 7606791168274 Code(s): O99.820 - STREPTOCOCCUS B CARRIER STATE COMPLICATING Status: Acute Current Visit: Yes (4) Vaginal delivery SNOMED Code(s): 570993840 Code(s): O80 - ENCOUNTER FOR FULL-TERM UNCOMPLICATED DELIVERY Status: Acute Current Visit: Yes - Problem List Review Problem List Initiated/Reviewed/Updated: Yes - My Orders Last 24 Hours: My Active Orders 11/16/20 04:04 Acetaminophen [TylenoL] 650 mg PO Q4H PRN Calcium Carbonate [Tums] 1,000 mg PO Q2H PRN Nalbuphine [Nubain] 10 mg IVPUSH Q2H PRN Ondansetron [Zofran] 4 mg IVPUSH Q4H PRN Sodium Chloride 0.9% [Saline Flush] 10 ml FLUSH ASDIRECTED PRN Resuscitation Status Routine 11/16/20 04:05 Patient Status [ADT] Routine Activity as Tolerated [RC] PFP Communication Order [RC] ASDIRECTED Heart Tones [RC] ASDIRECTED Non Stress Test [RC] PER UNIT ROUTINE Notify Provider [RC] PFP Notify Provider [RC] PRN Peripheral IV Care [RC] . DIRECTED Vital Signs [RC] PER UNIT ROUTINE Electronic Heart Tones Ext w TOCO [WOMSER] Routine Electronic Heart Tones Internal [WOMSER] Per Unit Routine Peripheral IV Insertion Adult [OM.PC] Routine 11/16/20 04:10 RAPID PLASMA REAGIN,RPR [CHEM] Routine 11/16/20 04:15 Lactated Ringers [Ringers, Lactated] 1,000 ml IV ASDIRECTED Oxytocin/Lactated Ringers [Pitocin in LR 10 Units/1,000 ML] 10 unit in 1,000 ml IV .CONTINUOUS 11/16/20 05:45 PATIENT RETYPE [BBK] Routine 11/16/20 Breakfast Regular Diet [DIET] 11/16/20 08:15 Ampicillin 1 gm Sodium Chloride 0.9% [Normal Saline] 100 ml IV Q4H Oxytocin/Lactated Ringers [Pitocin in LR 10 Units/1,000 ML] 10 unit in 1,000 ml IV TITRATE - Assessment Assessment:: PPD#0 - Plan Plan:: * Routine cares * Breast feeding * Discharge home in 1-2 days
[2020-11-16] MEDS ORDERED: Benzocaine/Menthol 20%-0.5% Spray 56 GM Canister TOP PRN (12:05)
[2020-11-16] MEDS: Witch Hazel Medicated Pads 40/Jar TOP PRN (13:10)
[2020-11-16] MEDS: Docusate Sodium 100 MG Cap PO PRN (14:31)
[2020-11-16] MEDS: Ibuprofen 600 MG Tab PO PRN (14:31)
[2020-11-17] MEDS: Ibuprofen 600 MG Tab PO PRN ×3 (04:51→19:02)
[2020-11-17] MEDS ORDERED: Acetaminophen/HYDROcodone 325-5 MG Tab PO PRN (08:17)
--- NOTE | 2020-11-17 08:18 | PCM.PNPP ---
- General Info Date of Service: 11/17/20 Functional Status: Reports: Pain Controlled, Tolerating Diet, Ambulating, Urinating - Review of Systems General: Reports: No Symptoms Pulmonary: Reports: No Symptoms Cardiovascular: Reports: No Symptoms Gastrointestinal: Reports: No Symptoms Genitourinary: Reports: Other (some perineal discomfort ) Musculoskeletal: Reports: No Symptoms Neurological: Reports: No Symptoms - Patient Data Vital Signs - Most Recent: Last Vital Signs Temp 36.5 C 11/17/20 03:08 Pulse 72 11/17/20 03:08 Resp 16 11/17/20 03:08 BP 125/76 11/17/20 03:08 Pulse Ox 95 11/17/20 03:08 Weight - Most Recent: 78.653 kg I&O - Last 24 Hours: Intake & Output 11/16/20 11/17/20 11/17/20 22:59 06:59 14:59 Intake Total 800 Balance 800 Med Orders - Current: Current Medications Acetaminophen (Tylenol) 650 mg PO Q4H PRN PRN Reason: mild pain or fever Benzocaine/Menthol (Dermoplast Pain Relief [place]) 0 gm TOP ASDIRECTED PRN PRN Reason: Perineal Comfort Measure Last Admin: 11/16/20 13:11 Dose: 1 can Documented by: Docusate Sodium (Colace) 100 mg PO BID PRN PRN Reason: Constipation Last Admin: 11/16/20 14:31 Dose: 100 mg Documented by: Ibuprofen (Motrin) 600 mg PO Q6H PRN PRN Reason: Mild pain or fever Last Admin: 11/17/20 04:51 Dose: 600 mg Documented by: Denise Ledbetter (Fiona) 1 pad TOP ASDIRECTED PRN PRN Reason: Perineal Comfort Measure Last Admin: 11/16/20 13:10 Dose: 1 tub Documented by: Discontinued Medications Acetaminophen (Tylenol) 650 mg PO Q4H PRN PRN Reason: Pain (Mild 1-3) and fever Ampicillin Sodium (Ampicillin) Confirm Administered Dose 2 gm IV .STK-MED ONE Stop: 11/16/20 03:15 Bupivacaine HCl (Sensorcaine-Mpf 0.25%) 10 ml .ROUTE .STK-MED ONE Stop: 11/16/20 00:01 Calcium Carbonate/Glycine (Tums) 1,000 mg PO Q2H PRN PRN Reason: Indigestion Diphenhydramine HCl (Benadryl) 25 mg IVPUSH Q6H PRN PRN Reason: pruritis Ephedrine Sulfate (Ephedrine Sulfate) 5 mg IVPUSH ASDIRECTED PRN PRN Reason: Hypotension Fentanyl (Sublimaze) 100 mcg EPIDUR Q3H PRN PRN Reason: Pain Last Admin: 11/16/20 04:48 Dose: 100 mcg Documented by: Fentanyl/Bupivacaine HCl (Fentanyl/Bupivacaine/Ns 2 Mcg-0.125% 100 Ml) 100 ml EPIDUR ASDIRECTED PRN PRN Reason: Pain Last Admin: 11/16/20 04:48 Dose: 100 ml Documented by: Ampicillin Sodium 2 gm/ Sodium (Chloride) 100 mls @ 200 mls/hr IV ONETIME ONE Stop: 11/16/20 04:33 Last Admin: 11/16/20 03:40 Dose: 200 mls/hr Documented by: Ampicillin Sodium 1 gm/ Sodium (Chloride) 100 mls @ 200 mls/hr IV Q4H JORDI Last Admin: 11/16/20 08:16 Dose: 200 mls/hr Documented by: Oxytocin/Lactated Ringer's (Pitocin In Lr 10 Units/1,000 Ml) 10 unit in 1,000 mls @ 500 mls/hr IV .CONTINUOUS JORDI Lactated Ringer's (Ringers, Lactated) 1,000 mls @ 100 mls/hr IV ASDIRECTED JORDI Last Admin: 11/16/20 08:25 Dose: 100 mls/hr Documented by: Oxytocin/Lactated Ringer's (Pitocin In Lr 10 Units/1,000 Ml) 10 unit in 1,000 mls @ 12 mls/hr IV TITRATE JORDI; Protocol Last Titration: 11/16/20 10:50 Dose: 999 munits/min, 5,994 mls/hr Documented by: Lactated Ringer's (Ringers, Lactated) Confirm Administered Dose 1,000 mls @ as directed .ROUTE .STK-MED ONE Stop: 11/16/20 03:15 Nalbuphine HCl (Nubain) 10 mg IVPUSH Q2H PRN PRN Reason: Pain Ondansetron HCl (Zofran) 4 mg IVPUSH Q4H PRN PRN Reason: Nausea/Vomiting Sodium Chloride (Saline Flush) 10 ml FLUSH ASDIRECTED PRN PRN Reason: Keep Vein Open - Interaction Infant Disposition, : in Room with Family Infant Interaction: Holding Feeding: Attempted ; Nursed Fair/Poor Support Person: - Recovery Exam Fundal Tone: Firm Fundal Level: 1 Fingerbreadths Below Umbilicus Fundal Placement: Midline Lochia Amount: Small Lochia Color: Rubra/Red Perineum Description: Other (see below) Other Perinuem Description: 2nd degree laceration with repair Episiotomy/Laceration: Approximated Bladder Status: Voiding Urinary Elimination: Voided - Exam General: Alert, Oriented, Cooperative GI/Abdominal Exam: Soft, Non-Tender Extremities: Normal Inspection Skin: Warm, Dry, Intact Wound/Incisions: Healing Well (Perineal repair appears well healed ) - Problem List & Annotations (1) 39 weeks gestation of SNOMED Code(s): 68361523 Code(s): Z3A.39 - 39 WEEKS GESTATION OF Status: Acute Current Visit: Yes (2) Normal labor SNOMED Code(s): 52527967 Code(s): O80 - ENCOUNTER FOR FULL-TERM UNCOMPLICATED DELIVERY; Z37.9 - OUTCOME OF DELIVERY, UNSPECIFIED Status: Acute Current Visit: Yes (3) GBS (group B Streptococcus carrier), +RV culture, currently SNOMED Code(s): 2919607296750, 626916276, 9508635985629 Code(s): O99.820 - STREPTOCOCCUS B CARRIER STATE COMPLICATING S tatus: Acute Current Visit: Yes (4) Vaginal delivery SNOMED Code(s): 667049522 Code(s): O80 - ENCOUNTER FOR FULL-TERM UNCOMPLICATED DELIVERY Status: Acute Current Visit: Yes - Problem List Review Problem List Initiated/Reviewed/Updated: Yes - My Orders Last 24 Hours: My Active Orders 11/16/20 Lunch Regular Diet [DIET] 11/16/20 12:05 Acetaminophen [TylenoL] 650 mg PO Q4H PRN Benzocaine/Menthol [Dermoplast Pain Relief [place]] See Dose Instructions TOP ASDIRECTED PRN Docusate Sodium [Colace] 100 mg PO BID PRN Ibuprofen [Motrin] 600 mg PO Q6H PRN witch Joseph [Tucks] 1 pad TOP ASDIRECTED PRN Heat Therapy [OM.PC] PRN 11/16/20 12:05 Activity as Tolerated [RC] PER UNIT ROUTINE Vital Signs [RC] 03,,, Assess Lochia [WOMSER] Per Unit Routine Assess Uterine Involution [WOMSER] Per Unit Routine Breast Pump [WOMSER] Per Unit Routine Ice Therapy [OM.PC] Per Unit Routine Perineal Care [OM.PC] Per Unit Routine Peripheral IV Discontinue [OM.PC] Routine Sitz Bath [OM.PC] Per Unit Routine 11/17/20 08:17 Acetaminophen/HYDROcodone [Binger 325-5 MG] 1 - 2 tab PO Q6H PRN 11/17/20 12:05 Heat Therapy [OM.PC] PRN - Assessment Assessment:: PPD#1 - Plan Plan:: * Routine cares * Breast feeding * Will order Lortab for perineal discomfort while in house * Discharge home tomorrow
[2020-11-17] MEDS: Docusate Sodium 100 MG Cap PO PRN ×2 (08:20→21:16)
[2020-11-17] MEDS: Acetaminophen 325 MG Tab PO PRN ×2 (08:20→15:33)
--- NOTE | 2020-11-17 10:38 | PCM48HPAN ---
Post Anesthesia Note - EVALUATION WITHIN 48HRS OF ANESTHETIC Vital Signs in Normal Range: Yes Patient Participated in Evaluation: Yes Respiratory Function Stable: Yes Airway Patent: Yes Cardiovascular Function Stable: Yes Hydration Status Stable: Yes Pain Control Satisfactory: Yes Nausea and Vomiting Control Satisfactory: Yes Mental Status Recovered: Yes Vital Signs: Last Vital Signs Temp 36.5 C 11/17/20 03:08 Pulse 72 11/17/20 03:08 Resp 16 11/17/20 03:08 BP 125/76 11/17/20 03:08 Pulse Ox 95 11/17/20 03:08
[2020-11-17] MEDS: Witch Hazel Medicated Pads 40/Jar TOP PRN (21:16)
[2020-11-18] MEDS: Acetaminophen 325 MG Tab PO PRN (00:11)
[2020-11-18] MEDS: Ibuprofen 600 MG Tab PO PRN (08:05)
--- NOTE | 2020-11-18 11:42 | PCM.SN.2 ---
- Free Text/Narrative Note: Post Progress Note PPD #2 Subjective: Doing well overall. Ambulating without difficulty. Lochia minimal. Voiding without difficulty. Tolerating regular diet without nausea or vomiting. Pain controlled with oral medications. Reports that the pelvic pain that she had yesterday morning has resolved and it is well controlled with just Tylenol and ibuprofen. Breast-feeding with minimal difficulty. Objective: Vitals: Vital Signs - 24 hr 11/17/20 11/17/20 11/18/20 15:35 21:18 04:05 Temperature 36.8 C 36.4 C 36.7 C Pulse, 78 71 58 L Peripheral Respiratory 15 18 14 Rate Blood Pressure 131/66 122/70 128/84 O2 Sat by Pulse 95 96 96 Oximetry 11/18/20 08:08 Temperature 36.5 C Pulse, 59 L Peripheral Respiratory 14 Rate Blood Pressure 127/74 O2 Sat by Pulse 98 Oximetry Physical Exam General: Alert and oriented, no acute distress Lungs: Clear to auscultation bilaterally Heart: Regular rate and rhythm Abdomen: Soft, minimal appropriate tenderness, non-distended, fundus midline, nontender, and at the umbilicus Extremities: No edema ASSESSMENT: 30-year-old female -0-0-1 s/p normal vaginal delivery PPD #2, complicated by GBS positive status and received 2 doses of antibiotics PLAN: Doing well Breast-feeding with minimal difficulty. Assist as needed Lochia minimal. Continue to monitor for appropriate lochia. Continue routine care Discharge home today Joaquim Medina MD 11:41 AM 11/18/2020
--- NOTE | 2020-11-18 11:51 | PCM.DCSUM1 ---
Discharge Summary - Hospital Course Free Text/Narrative:: - General Info Date of Service: 11/16/20 - Delivery Note Labor: Spontaneous Delivery Outcome: Livebirth Infant Delivery Method: Spontaneous Vaginal Delivery-Single Infant Delivery Mode: Spontaneous Presentation: Left Occiput Anterior (WALLACE) Nuchal Cord: None Anesthesia Type: Epidural Amniotic Fluid Description: Clear Episiotomy Type: None Laceration: 2nd Degree, Perineal Suture type: Vicryl Suture size: 2-0 Placenta: Intact, Spontaneous Cord: 3 Vessels Estimated Blood Loss: 100 Resuscitation Needed: Yes : Bulb Syringe, Stimulated, Warmed, [place] Used, Warmer Used Delivery Comments (Free Text/Narrative):: Patient found to be complete and began pushing. With maternal pushing effort head delivered from WALLACE presentation. No nuchal cord present. With gentle downward traction the shoulders and body delivered. Infant placed on maternal abdomen. Cord clamped and cut. Cord blood obtained. Placenta allowed time to separate and expelled intact. Inspection of perineum showed a 2nd degree laceration repaired with a 2-0 vicryl in the typical fashion Diagnosis: Stroke: No - Discharge Data Discharge Date: 11/18/20 Discharge Disposition: Home, Self-Care 01 Condition: Good - Referral to Home Health Primary Care Physician: Olive Campbell MD - Discharge Diagnosis/Problem(s) (1) 39 weeks gestation of SNOMED Code(s): 88316706 ICD Code: Z3A.39 - 39 WEEKS GESTATION OF Status: Acute Current Visit: Yes (2) GBS (group B Streptococcus carrier), +RV culture, currently SNOMED Code(s): 7483206268661, 057200996, 3256602539156 ICD Code: O99.820 - STREPTOCOCCUS B CARRIER STATE COMPLICATING Status: Acute Current Visit: Yes (3) Vaginal delivery SNOMED Code(s): 767638848 ICD Code: O80 - ENCOUNTER FOR FULL-TERM UNCOMPLICATED DELIVERY Status: Acute Current Visit: Yes - Patient Summary/Data Complications: None Consults: None Hospital Course: Tabitha Gresham was admitted for active labor. On admission her cervix was dilated to 4-5 cm. She was GBS positive and was started on ampicillin for GBS prophylaxis. She received a total of 2 doses prior to delivery. She was given pitocin for augmentation. She was given an epidural for anesthesia. She had artificial rupture of membranes with clear fluid. She progressed to complete and began pushing. On 11/16/2020 she had a normal vaginal delivery of a live female at 10:50. Apgars of 8 and 9. Weight of 3020 g (6 pounds 10.5 ounces). Her course was complicated by significant perineal pain in the morning of PPD #1 that was able to be controlled with Tylenol and ibuprofen. Patient was offered Julian tablets but did not take any narcotic medications for her pain. Her pain was well controlled on PPD #2 and she had minimal lochia. She was ambulating, tolerating a regular diet and voiding normally. She was breast-feeding with minimal difficulty. She was afebrile and her hematocrit was 37.1 on admission. She desired to be discharged home on the morning of PPD #2. Her blood type is A+. - Patient Instructions Diet: Regular Diet as Tolerated Activity: Apply Ice, As Tolerated Activity, Other: Nothing in the vagina for 6 weeks Driving: May Drive Today Showering/Bathing: May Shower Notify Provider of: Fever, Increased Pain, Swelling and Redness, Drainage, Nausea and/or Vomiting Other/Special Instructions: Please contact your physician's office if you have heavy vaginal bleeding enough to soak a pad in less than an hour for several hours. Monitor for any signs of an infection in the breasts with severe pain or redness of the breast. - Discharge Plan *PRESCRIPTION DRUG MONITORING PROGRAM REVIEWED*: Not Applicable *COPY OF PRESCRIPTION DRUG MONITORING REPORT IN PATIENT JAYANT: Not Applicable Home Medications: Home Meds Vits #93/Iron Fum/FA [ Formula Tablet] 1 each PO DAILY 11/16/20 [History] Acetaminophen [Tylenol] 650 mg PO Q4H PRN tablet 11/18/20 [Rx] Benzocaine/Menthol [Dermoplast Pain Relief [place]] 1 spray TOP ASDIRECTED PRN canister 11/18/20 [Rx] Docusate Sodium [Colace] 100 mg PO BID PRN cap 11/18/20 [Rx] Ibuprofen [Motrin] 600 mg PO Q6H PRN tablet 11/18/20 [Rx] denise roseeL [Tucks] 1 pad TOP ASDIRECTED PRN pad 11/18/20 [Rx] Patient Handouts: Care of a Perineal Tear, Care After Vaginal Delivery Referrals: Olive Campbell MD [Primary Care Provider] - (Follow-up in 3 to 6 weeks for r outine visit or earlier as needed) - Discharge Summary/Plan Comment DC Time >30 min.: No - Patient Data Vitals - Most Recent: Last Vital Signs Temp 36.5 C 11/18/20 08:08 Pulse 59 L 11/18/20 08:08 Resp 14 11/18/20 08:08 BP 127/74 11/18/20 08:08 Pulse Ox 98 11/18/20 08:08 Weight - Most Recent: 78.653 kg I&O - Last 24 hours: Intake & Output 11/17/20 11/18/20 11/18/20 22:59 06:59 14:59 Intake Total 180 240 Balance 180 240 Med Orders - Current: Current Medications Acetaminophen (Tylenol) 650 mg PO Q4H PRN PRN Reason: mild pain or fever Last Admin: 11/18/20 00:11 Dose: 650 mg Documented by: Hydrocodone Bitart/Acetaminophen (Julian 325-5 Mg) 1 - 2 tab PO Q6H PRN PRN Reason: Pain Benzocaine/Menthol (Dermoplast Pain Relief [place]) 0 gm TOP ASDIRECTED PRN PRN Reason: Perineal Comfort Measure Last Admin: 11/16/20 13:11 Dose: 1 can Documented by: Docusate Sodium (Colace) 100 mg PO BID PRN PRN Reason: Constipation Last Admin: 11/17/20 21:16 Dose: 100 mg Documented by: Ibuprofen (Motrin) 600 mg PO Q6H PRN PRN Reason: Mild pain or fever Last Admin: 11/18/20 08:05 Dose: 600 mg Documented by: Denise Ledbetter (Tucks) 1 pad TOP ASDIRECTED PRN PRN Reason: Perineal Comfort Measure Last Admin: 11/17/20 21:16 Dose: 1 tub Documented by: Discontinued Medications Acetaminophen (Tylenol) 650 mg PO Q4H PRN PRN Reason: Pain (Mild 1-3) and fever Ampicillin Sodium (Ampicillin) Confirm Administered Dose 2 gm IV .STK-MED ONE Stop: 11/16/20 03:15 Bupivacaine HCl (Sensorcaine-Mpf 0.25%) 10 ml .ROUTE .STK-MED ONE Stop: 11/16/20 00:01 Calcium Carbonate/Glycine (Tums) 1,000 mg PO Q2H PRN PRN Reason: Indigestion Diphenhydramine HCl (Benadryl) 25 mg IVPUSH Q6H PRN PRN Reason: pruritis Ephedrine Sulfate (Ephedrine Sulfate) 5 mg IVPUSH ASDIRECTED PRN PRN Reason: Hypotension Fentanyl (Sublimaze) 100 mcg EPIDUR Q3H PRN PRN Reason: Pain Last Admin: 11/16/20 04:48 Dose: 100 mcg Documented by: Fentanyl/Bupivacaine HCl (Fentanyl/Bupivacaine/Ns 2 Mcg-0.125% 100 Ml) 100 ml EPIDUR ASDIRECTED PRN PRN Reason: Pain Last Admin: 11/16/20 04:48 Dose: 100 ml Documented by: Ampicillin Sodium 2 gm/ Sodium (Chloride) 100 mls @ 200 mls/hr IV ONETIME ONE Stop: 11/16/20 04:33 Last Admin: 11/16/20 03:40 Dose: 200 mls/hr Documented by: Ampicillin Sodium 1 gm/ Sodium (Chloride) 100 mls @ 200 mls/hr IV Q4H JORDI Last Admin: 11/16/20 08:16 Dose: 200 mls/hr Documented by: Oxytocin/Lactated Ringer's (Pitocin In Lr 10 Units/1,000 Ml) 10 unit in 1,000 mls @ 500 mls/hr IV .CONTINUOUS JORDI Lactated Ringer's (Ringers, Lactated) 1,000 mls @ 100 mls/hr IV ASDIRECTED JORDI Last Admin: 11/16/20 08:25 Dose: 100 mls/hr Documented by: Oxytocin/Lactated Ringer's (Pitocin In Lr 10 Units/1,000 Ml) 10 unit in 1,000 mls @ 12 mls/hr IV TITRATE JORDI; Protocol Last Titration: 11/16/20 10:50 Dose: 999 munits/min, 5,994 mls/hr Documented by: Lactated Ringer's (Ringers, Lactated) Confirm Administered Dose 1,000 mls @ as directed .ROUTE .STK-MED ONE Stop: 11/16/20 03:15 Nalbuphine HCl (Nubain) 10 mg IVPUSH Q2H PRN PRN Reason: Pain Ondansetron HCl (Zofran) 4 mg IVPUSH Q4H PRN PRN Reason: Nausea/Vomiting Sodium Chloride (Saline Flush) 10 ml FLUSH ASDIRECTED PRN PRN Reason: Keep Vein Open
== END 2020-11-18 13:45 | disposition home or self-care (01) | DRG 560 ==
LOC: JD.OBCHECK 02:44 → JD.OB 02:44 → JD.OBCHECK 03:10 → JD.OB 03:11 → OBSVTOIN 10:50 → JD.OB 11:06
PROVIDERS: ADMIT Obstetrics & Gynecology; ATTEND Obstetrics & Gynecology
PROC: 10E0XZZ Delivery of Products of Conception, External Approach (ICD-10-PCS; principal; 2020-11-16)
PROC: 10907ZC Drainage of Amniotic Fluid, Therapeutic from Products of Conception, Via Natural or Artificial Opening (ICD-10-PCS; 2020-11-16)
PROC: 0KQM0ZZ Repair Perineum Muscle, Open Approach (ICD-10-PCS; 2020-11-16)
PROC: 3E0R3BZ Introduction of Anesthetic Agent into Spinal Canal, Percutaneous Approach (ICD-10-PCS; 2020-11-16)
DX: O99.824 Streptococcus B carrier state complicating childbirth (principal); O70.1 Second degree perineal laceration during delivery; Z37.0 Single live birth; O99.62 Diseases of the digestive system complicating childbirth; K21.9 Gastro-esophageal reflux disease without esophagitis; O99.893 Other specified diseases and conditions complicating puerperium; R10.2 Pelvic and perineal pain; Z3A.39 39 weeks gestation of pregnancy
CPT/HCPCS: 01967; 36415; 51702; 59025; 59409; 85025; 86592; 86850; 86900; 86901; A9270-GY; J0290; J2590; J3010; J3490; J7120

== ENCOUNTER 2022-05-22 03:46 | Inpatient (IN) | payer BC ==
[~2022-05-22 03:46] MED LIST changes: +Lidocaine 1% 10 ML MDV ONE; +Sodium Chloride 0.9% 10 ML SDV ONE
[2022-05-22] MEDS ORDERED: Ampicillin 2 GM in Sodium Chloride 0.9% 100 ML IV ONE (04:09)
[2022-05-22] MEDS ORDERED: Nalbuphine HCl 10 MG/ 1ML Amp IVPUSH PRN (04:09)
[2022-05-22] MEDS ORDERED: Lidocaine 1% 50 ML MDV INJECT ONE (04:09)
[2022-05-22] MEDS ORDERED: Sodium Chloride 0.9% 10 ML Syringe FLUSH PRN (04:09)
[2022-05-22] MEDS ORDERED: Ampicillin 2 GM Vial ONE (04:13)
[2022-05-22] MEDS: Lactated Ringers 1,000 ML IV SCH ×4 (04:15→08:54)
[2022-05-22] MEDS ORDERED: Oxytocin/Lactated Ringers 10 UNIT/1,000 ML BAG IV SCH ×2 (04:15→09:00)
[2022-05-22] MEDS ORDERED: ePHEDrine 50 MG/ML SDV IVPUSH PRN (04:50)
[2022-05-22] MEDS ORDERED: fentaNYL 100 MCG/2 ML SDV EPIDUR PRN (04:50)
[2022-05-22] MEDS ORDERED: diphenhydrAMINE 50 MG/ML SDV IVPUSH PRN (04:50)
[2022-05-22] MEDS ORDERED: Bupivacaine/fentaNYL/NS 100 ML Bag EPIDUR PRN (04:50)
[2022-05-22] MEDS: Ampicillin 1 GM in Sodium Chloride 0.9% 100 ML IV SCH ×2 (08:19→14:47)
[2022-05-22] MEDS ORDERED: Sodium Chloride 0.9% 10 ML Syringe FLUSH SCH (09:00)
[2022-05-22] MEDS ORDERED: Docusate Sodium 100 MG Cap PO PRN (13:03)
[2022-05-22] MEDS ORDERED: Witch Hazel Medicated Pads 40/Jar TOP PRN (13:03)
[2022-05-22] MEDS ORDERED: Benzocaine/Menthol 20%-0.5% Spray 78 GM Cannister TOP PRN (13:03)
[2022-05-22] MEDS: Ibuprofen 600 MG Tab PO PRN (18:02)
[2022-05-22] MEDS: Acetaminophen 325 MG Tab PO PRN ×2 (18:03→22:00)
[2022-05-23] MEDS: Ibuprofen 600 MG Tab PO PRN ×2 (00:12→06:22)
[2022-05-23] MEDS: Acetaminophen 325 MG Tab PO PRN (04:19)
== END 2022-05-23 16:18 | disposition home or self-care (01) | DRG 560 ==
LOC: JD.OBCHECK 03:46 → JD.OB 03:50 → JD.OBCHECK 04:09 → JD.OB 04:10 → OBSVTOIN 12:09 → JD.OB 15:24
PROVIDERS: ADMIT Obstetrics & Gynecology; ATTEND Obstetrics & Gynecology
PROC: 3E0234Z Introduction of Serum, Toxoid and Vaccine into Muscle, Percutaneous Approach (ICD-10-PCS; principal; 2022-05-22)
PROC: 10E0XZZ Delivery of Products of Conception, External Approach (ICD-10-PCS; 2022-05-22)
PROC: 3E0R3BZ Introduction of Anesthetic Agent into Spinal Canal, Percutaneous Approach (ICD-10-PCS; 2022-05-22)
DX: O99.62 Diseases of the digestive system complicating childbirth (principal); K21.9 Gastro-esophageal reflux disease without esophagitis; Z37.0 Single live birth; O99.824 Streptococcus B carrier state complicating childbirth; Z23 Encounter for immunization
CPT/HCPCS: 36415; 51702; 59025; 59409; 85025; 86592; A9270-GY; J0290; J2590; J3010; J3490; J7120